=== PATIENT | female | born 1995 | race Caucasian/White ===

== ENCOUNTER 2017-08-15 16:27 | Emergency (ER) | payer BC ==
[~2017-08-15] VITALS: Ht 152.4 cm; Wt 60.1 kg
[~2017-08-15 16:27] MED LIST: BCPILLS PO
[2017-08-15 16:29] VITALS: TEMP 37.1; Ht 152.4 cm; Wt 60.1 kg
--- NOTE | 2017-08-15 18:09 | EMERGENCY ROOM VISIT NOTE ---
History Report prepared by Rm: Amado Delaney Under the Supervision of: Dr. Nikolas Murillo M.D. First contact with patient: 17:57 Chief Complaint: RESPIRATORY PROBLEMS Stated Complaint: HARD TIME BREATHING LAYING DOWN AND EXHAUSTION Nursing Triage Summary: Pt reports trouble breathing when laying flat. Denies cough. No recent long travel. Increased fatigue. History of Present Illness The patient is a 21 year old female with a past medical history of a mitral valve prolapse who presents to the ED with a cc of persistent shortness of breath with laying down beginning last week. Positive worsening fatigue. Negative cough, fevers, chills, chest pain, swelling in legs, recent weight gain. She states that the shortness of breath is really worsened with laying down, and at night she has trouble breathing due to laying down. The patient notes that she has been getting really exhausted recently. For example, she woke up around 1100 this morning, but just wanted to go back to bed. She adds that she gets really anxious, and all these symptoms started after she recently drove 2 hours from [place] to here, and had an episode of bad anxiety. The patient notes no history of thyroid problems. She says that her father has a history of thyroid problems. She states that she has no history of blood clots. She denies any known recent sick contacts. Source of History: patient Onset: Last week Position: other (global) Quality: other (shortness of breath) Timing: other (persistent) Modifying Factors (Worsening): other (laying down) Associated Symptoms: + fatigue, No fevers, No chills, No cough, No chest pain Note: Negative recent weight gain. Review of Systems See HPI for pertinent positives and negatives. A total of ten systems were reviewed and were otherwise negative. Past Medical & Surgical Medical Problems: (1) Mitral valve prolapse Family History FH: thyroid condition Social History Smoking Status: Never Smoker Smokeless Tobacco Use: No Alcohol Use: occasionally Drug Use: none Housing Status: lives with roommate Occupation Status: [employer] student Current/Historical Medications Scheduled Control Pills ( Control Pills), 1 TAB PO DAILY Allergies Coded Allergies: No Known Allergies (Unverified , 03/18/17) Physical Exam Vital Signs Date Time Temp Pulse Resp B/P (MAP) Pulse Ox O2 Delivery O2 Flow Rate FiO2 08/15/17 19:30 83 17 114/73 98 Room Air 08/15/17 19:01 109/64 08/15/17 19:00 76 12 98 Room Air 08/15/17 18:33 82 16 119/74 99 Room Air 08/15/17 18:33 99 Room Air 08/15/17 16:32 97 Room Air 08/15/17 16:29 37.1 100 17 130/82 97 Room Air Physical Exam GENERAL: Awake, alert, well-appearing, NAD HENT: Normocephalic, atraumatic. EYES: Normal conjunctiva. Sclera non-icteric. NECK: Supple. No nuchal rigidity. FROM. RESPIRATORY: CTAB, no rhonchi, wheezing, crackles CARDIAC: RRR, no MRG ABDOMEN: Soft, NTND, BS+ MSK: No chest wall TTP, no LE edema NEURO: GCS 15, CN 2-12 intact, moves all 4s on command SKIN: No rash or jaundice noted. Medical Decision & Procedures ER Provider Diagnostic Interpretation: X-ray: Per my interpretation, radiologist review. CHEST ONE VIEW PORTABLE CLINICAL HISTORY: Chest pain and shortness of breath. COMPARISON STUDY: Chest radiograph March 18, 2017. FINDINGS: Lung volumes are normal. No pneumothorax or pleural effusion is noted. Cardiac size is at the upper limits of normal. There is no evidence for pulmonary edema. There is no consolidation to suggest pneumonia. IMPRESSION: 1. No acute cardiopulmonary findings. 2. Top normal cardiac size. Electronically signed by: Jaylan Bergeron M.D. 08/15/2017 7:08 PM Dictated Date/Time: 08/15/2017 7:07 PM Laboratory Results 08/15/17 18:26 Red Blood Count 4.55, Mean Corpuscular Volume 86.6, Mean Corpuscular Hemoglobin 29.5, Mean Corpuscular Hemoglobin Concent 34.0, Mean Platelet Volume 10.4, Neutrophils (%) (Auto) 67.9, Lymphocytes (%) (Auto) 22.9, Monocytes (%) (Auto) 8.0, Eosinophils (%) (Auto) 1.0, Basophils (%) (Auto) 0.1, Neutrophils # (Auto) 5.61, Lymphocytes # (Auto) 1.89, Monocytes # (Auto) 0.66, Eosinophils # (Auto) 0.08, Basophils # (Auto) 0.01 4/3/18 18:26 Test 08/15/17 18:26 White Blood Count 8.26 K/uL (4.8-10.8) Red Blood Count 4.55 M/uL (4.2-5.4) Hemoglobin 13.4 g/dL (12.0-16.0) Hematocrit 39.4 % (37-47) Mean Corpuscular Volume 86.6 fL (80-100) Mean Corpuscular Hemoglobin 29.5 pg (25-34) Mean Corpuscular Hemoglobin Concent 34.0 g/dl (32-36) Platelet Count 273 K/uL (130-400) Mean Platelet Volume 10.4 fL (7.4-10.4) Neutrophils (%) (Auto) 67.9 % Lymphocytes (%) (Auto) 22.9 % Monocytes (%) (Auto) 8.0 % Eosinophils (%) (Auto) 1.0 % Basophils (%) (Auto) 0.1 % Neutrophils # (Auto) 5.61 K/uL (1.4-6.5) Lymphocytes # (Auto) 1.89 K/uL (1.2-3.4) Monocytes # (Auto) 0.66 K/uL (0.11-0.59) Eosinophils # (Auto) 0.08 K/uL (0-0.5) Basophils # (Auto) 0.01 K/uL (0-0.2) RDW Standard Deviation 42.4 fL (36.4-46.3) RDW Coefficient of Variation 13.3 % (11.5-14.5) Immature Granulocyte % (Auto) 0.1 % Immature Granulocyte # (Auto) 0.01 K/uL (0.00-0.02) Prothrombin Time 10.1 SECONDS (9.0-12.0) Prothromb Time International Ratio 1.0 (0.9-1.1) Activated Partial Thromboplast Time 28.1 SECONDS (21.0-31.0) Partial Thromboplastin Ratio 1.1 Anion Gap 5.0 mmol/L (3-11) Est Creatinine Clear Calc Drug Dose 110.2 ml/min Estimated GFR () 147.4 Estimated GFR (Non- 127.2 BUN/Creatinine Ratio 13.3 (10-20) Calcium Level 8.7 mg/dl (8.5-10.1) Magnesium Level 2.3 mg/dl (1.8-2.4) Troponin I < 0.015 ng/ml (0-0.045) Pro-B-Type Natriuretic Peptide 32 pg/ml (0-450) Thyroid Stimulating Hormone (TSH) 0.505 uIu/ml (0.300-4.500) Lyme Disease IgG Antibody NEG (NEG) Lyme Disease IgM Antibody NEG (NEG) Laboratory results reviewed by me ECG Per My Interpretation Indication: SOB/dyspnea Rate (beats per minute): 78 Rhythm: normal sinus Findings: T-wave inversion (lead 3), other (normal intervals, right axis deviation, no other sts changes or twi) ED Course 1801: The patient was evaluated in room A4B. A complete history and physical exam was performed. 1918: I reevaluated the patient and she feels the same. I did a bedside ultrasound - there was no pericardial effusion. There was good squeeze. 1932: I discussed the patient with Dr. Camargo - [facility] cardiology - he agrees that there is nothing else we need to do right now, and the workup today was fairly complete. He will have her call the office tomorrow to have him see her. 1938: I reevaluated the patient and she is resting. Discussed results and discharge instructions: she verbalized understanding and agreement. The patient is ready for discharge. Medical Decision Nursing notes reviewed. Ancillary studies and prior records reviewed. The patient is a 21 year old female with a past medical history of a mitral valve prolapse who presents to the ED with a cc of persistent shortness of breath with laying down beginning last week. Positive worsening fatigue. Negative cough, fevers, chills, chest pain, swelling in legs, recent weight gain. Differential diagnosis: Etiologies such as infections, reactive airway disease, pneumonia, pneumothorax , COPD, CHF, cardiac ischemia, pulmonary embolism, musculoskeletal, gastrointestinal, as well as others were entertained. Patient was seen and evaluated the bedside. Patient does have a prior history of MVP which is diagnosed during elementary school patient was on medications but has not been on any medications in some time. Patient is follow-up with a pediatric orthodontist in [place] when she is back home yearly around October. Patient does complain that she does get some shortness of breath primarily when laying flat. I may be an element of anxiety or panic. Patient has complained of some mild shortness of breath. Patient denies any history of DVT or PE. Patient does not take any OCPs. Patient denies any recent prolonged car or plane travel. No lower extremity swelling no recent hospitalizations. Patient had blood work completed, EKG, troponin, BNP, chest x-ray. Patient's chest x-ray was fairly clear. Her cardiac size is on the upper limit of normal. I did discuss with the patient and did do a bedside ultrasound. There is no pericardial effusion. Less likely pericarditis. Patient has fairly good concentric squeeze. There is no RV dilatation or septal bowing. Less likely PE or pulmonary hypertension. Patient's other blood work is fairly unremarkable. Patient is not anemic. Patient has a normal BNP. Troponin is negative. Patient's kidney function is normal. Ultralights are also normal. I discussed the case with the on-call motion picture projectionist apprentice who agrees with the workup was fairly complete given the complaints. Given the fact that there were no glaring abnormalities he will call the office tomorrow in order to schedule a follow-up appointment. All these results as well as the follow-up were conveyed to the patient. I did discuss with the trimming caser in order to make sure the appointment was made. Patient was deemed suitable for outpatient follow-up and treatment at this time. Patient was given strict follow-up, discharge, and return precautions. All questions were answered. Patient was deemed suitable for outpatient follow-up at this time. Patient agreed with the plan of care and was safely discharged home. Medication Reconcilliation Current Medication List: was personally reviewed by me Blood Pressure Screening Patient's blood pressure: Elevated blood pressure Blood pressure disposition: Elevated BP felt to be situational Consults Time Called: 1929 Consulting Physician: Dr. Mary Jo HATHAWAY cardiology Returned Call: 1932 I discussed the patient with Dr. Mary Jo HATHAWAY cardiology - he agrees that there is nothing else we need to do right now, and the workup today was fairly complete. He will have her call the office tomorrow to have him see her. Impression Primary Impression: SOB (shortness of breath) Additional Impression: Fatigue Scribe Attestation The scribe's documentation has been prepared under my direction and personally reviewed by me in its entirety. I confirm that the note above accurately reflects all work, treatment, procedures, and medical decision making performed by me. Departure Information Dispostion Home / Self-Care Referrals No Doctor, Assigned (PCP) Ashish Camargo MD [facility] Patient Instructions Fatigue Manage, My [facility] Additional Instructions Please return to the emergency department if you have worsening or recurrent symptoms not amenable to at-home treatment. Please call for a follow-up appointment with her primary care physician. Please take your medications as prescribed. If you have other concerns and/or complaints please feel free to also call your primary care physician's office or return the ED for further evaluation, management, and treatment. You may take 600 mg Ibuprofen every 6 hours as needed for pain with food for no more than 2 consecutive days. You may take tylenol 1000 mg every 6 hours as needed for pain. You may take motrin and tylenol separately or at the same time. Please follow up with the motion picture projectionist apprentice as scheduled. If you do not receive a call for an appointment call the ER back at [phone] to inquire. You have been examined and treated today on an emergency basis only. This is not a substitute for, or an effort to provide, complete comprehensive medical care. It is impossible to recognize and treat all injuries or illnesses in a single emergency department visit. It is therefore important that you follow up closely with [facility], your PCP, and/or your specialist(s). Call as soon as possible for an appointment. Thank you for your time and consideration. I look forward to speaking with you again soon. Please don't hesitate to call us if you have any questions. Problem Qualifiers Additional Impression: Fatigue Fatigue type: unspecified Qualified Codes: R53.83 - Other fatigue
[2017-08-15 18:33] VITALS: O2SAT 99
[2017-08-15 18:39] LABS: BASO % 0.1 %; BASO ABS # 0.01 K/uL (0-0.2); EOS ABS # 0.08 K/uL (0-0.5); HEMATOCRIT 39.4 % (37-47); HEMOGLOBIN 13.4 g/dL (12.0-16.0); IG# 0.01 K/uL (0.00-0.02); LYMPH % 22.9 %; LYMPH ABS # 1.89 K/uL (1.2-3.4); MEAN CELL VOLUME 86.6 fL (80-100); MEAN CORPUSCULAR HEMOGLOBIN 29.5 pg (25-34); MEAN PLATELET VOLUME 10.4 fL (7.4-10.4); MONO ABS # 0.66 K/uL (0.11-0.59); NEUT % 67.9 %; NEUT ABS # 5.61 K/uL (1.4-6.5); PLATELET COUNT 273 K/uL (130-400); RED CELL DISTRIBUTION WIDTH CV 13.3 % (11.5-14.5); RED CELL DISTRIBUTION WIDTH SD 42.4 fL (36.4-46.3); WHITE BLOOD COUNT 8.26 K/uL (4.8-10.8)
[2017-08-15 18:49] LABS: PTT PATIENT 28.1 SECONDS (21.0-31.0)
[2017-08-15 18:56] LABS: BLOOD UREA NITROGEN 9 mg/dl (7-18); CALCIUM 8.7 mg/dl (8.5-10.1); CARBON DIOXIDE 25 mmol/L (21-32); CREATININE 0.66 mg/dl (0.60-1.20); GLUCOSE 86 mg/dl (70-99); POTASSIUM 3.7 mmol/L (3.5-5.1); SODIUM 137 mmol/L (136-145)
--- NOTE | 2017-08-15 19:09 | DIAGNOSTIC IMAGING REPORT ---
CHEST ONE VIEW PORTABLE CLINICAL HISTORY: Chest pain and shortness of breath. COMPARISON STUDY: Chest radiograph March 18, 2017. FINDINGS: Lung volumes are normal. No pneumothorax or pleural effusion is noted. Cardiac size is at the upper limits of normal. There is no evidence for pulmonary edema. There is no consolidation to suggest pneumonia. IMPRESSION: 1. No acute cardiopulmonary findings. 2. Top normal cardiac size. Electronically signed by: Jaylan Bergeron M.D. 08/15/2017 7:08 PM Dictated Date/Time: 08/15/2017 7:07 PM
[2017-08-15 20:46] VITALS: BP 112/80; PULSE 81; O2SAT 97
== END 2017-08-15 20:46 | disposition home or self-care (01) ==
LOC: C.EDB 16:28 → C.EDA 20:46
DX: R06.02 Shortness of breath (principal); R53.83 Other fatigue; I34.1 Nonrheumatic mitral (valve) prolapse